=== PATIENT | male | born 1955 | race Caucasian/White ===

== ENCOUNTER → 2019-11-22 | Outpatient (REF) | LOC: LAB 20:41 | PROVIDERS: ATTEND Nurse Practitioner Family | DX: Z01.89 Encounter for other specified special examinations (principal) | CPT/HCPCS: 36415; 84145 ==

== ENCOUNTER 2020-03-18 10:38 | Outpatient (CLI) | payer OTHER ==
[~2020-03-18] VITALS: Ht 185 cm; Wt 93.1 kg
[2020-03-18] MEDS ORDERED: LISI-552 PO (11:38)
== END 2020-03-18 11:41 | disposition home or self-care (01) ==
LOC: PREOP 10:38
PROVIDERS: ATTEND Specialist
DX: Z01.818 Encounter for other preprocedural examination (principal)

== ENCOUNTER 2020-03-19 10:01 | Day surgery (SDC) | payer OTHER ==
[~2020-03-19] VITALS: Ht 185 cm
[~2020-03-19 10:01] MED LIST: LISI-552 PO
[2020-03-19 10:05] VITALS: BP 165/98
[2020-03-19] MEDS ORDERED: PILOCARPINE 4% OPHTH SOLN (ISOPTO CARPINE) 15 ML BTL OP ONE (10:15)
[2020-03-19] MEDS ORDERED: TIMOLOL MALEATE 0.5% 5 ML (TIMOPTIC) BTL OU ONE (10:15)
[2020-03-19] MEDS ORDERED: TETRACAINE 0.5% OPHTH SOLN 4 ML BTL (SINGLE DOSE ONLY) OU ONE (10:15)
--- NOTE | 2020-03-19 10:52 | Ophthalmologist Pre-Op Note ---
Pre-Operative Progress Note H&P Reviewed The H&P was reviewed, patient examined and no changes noted. Date H&P Reviewed: Mar 19, 2020 Time H&P Reviewed: 10:51 Pre-Op Dx PREOPERATIVE DIAGNOSIS: Narrow angle glaucoma, Left Eye POSTOPERATIVE DIAGNOSIS: Narrow angle glaucoma, Left Eye PROCEDURE: YAG Iridotomy left eye SURGEON: Red Lomas ANESTHESIA: Topical anesthesia COMPLICATIONS: None ESTIMATED BLOOD LOSS: Minimal DESCRIPTION OF PROCEDURE: After proper informed consent was obtained, that patients left eye received one drop of tetracaine and one drop of pilocarpine 4%. The patient received 1 drop of timolol 0.5% five minutes after the pilocarpine. The iridotomy lens was placed on the patients eye. The patient was then placed at the argon laser and using a power of [ ] milliwatts, duration of [ ], and spot size of [ ], [ ] burst were used to flatten the iris. After this the patient was moved to the YAG laser and using a power of [ ] millijoules [ ] bursts were used to fashion a patent iridotomy. The patient tolerated the procedure well without complications and the patients pressure was [ ] shortly after the laser RED LOMAS MD Mar 19, 2020 10:52
--- NOTE | 2020-03-19 11:32 | Ophthalmology Operative Report ---
YAG Iridotomy PREOPERATIVE DIAGNOSIS: Narrow angle glaucoma, Left Eye POSTOPERATIVE DIAGNOSIS: Narrow angle glaucoma, Left Eye PROCEDURE: YAG Iridotomy left eye SURGEON: Red Lomas ANESTHESIA: Topical anesthesia COMPLICATIONS: None ESTIMATED BLOOD LOSS: Minimal DESCRIPTION OF PROCEDURE: After proper informed consent was obtained, that patients left eye received one drop of tetracaine and one drop of pilocarpine 4%. The patient received 1 drop of timolol 0.5% five minutes after the pilocarpine. The iridotomy lens was placed on the patients eye. After this the patient was moved to the YAG laser and using a power of [7.0 ] millijoules [ 6] bursts were used to fashion a patent iridotomy. The patient tolerated the procedure well without complications and the patients pressure was [20 ] shortly after the laser RED LOMAS MD Mar 19, 2020 11:32
== END 2020-03-19 11:40 | disposition home or self-care (01) ==
LOC: SDC 10:01
PROVIDERS: ATTEND Specialist
DX: H40.20X0 Unspecified primary angle-closure glaucoma, stage unspecified (principal); I10 Essential (primary) hypertension; F17.290 Nicotine dependence, other tobacco product, uncomplicated; Z79.899 Other long term (current) drug therapy

== ENCOUNTER 2021-12-06 15:43 | Emergency (ER) | payer OTHER ==
[~2021-12-06] VITALS: Ht 170 cm; Wt 102.0 kg
[~2021-12-06 15:43] MED LIST changes: -LISI-552 PO; +LISI20TA26 PO
[2021-12-06 15:50] VITALS: BP 125/72
[2021-12-06] MEDS ORDERED: fentaNYL INJ 100 MCG/2 ML AMP IVP STA (15:58)
--- NOTE | 2021-12-06 16:01 | ED Upper Extremity ---
General Stated Complaint: R WRIST PAIN Source: patient Exam Limitations: no limitations History of Present Illness Date Seen by Provider: December 06, 2021 Time Seen by Provider: 15:59 Initial Comments Patient is a 65-year-old male who presents ED with right wrist pain. Patient fell 30 minutes ago while going down the wheelchair ramp at his house 30 minutes ago. Fell on extended out right arm resulting in right wrist injury with deformity. Denies hit his head or loss of conscious. Not on blood thinners. Denies headache, chest pain, shortness of breath, nausea vomiting, diarrhea Allergies and Home Medications Allergies Coded Allergies: No Known Drug Allergies (Unverified , 03/18/20) Patient Home Medication List Home Medication List Reviewed: Yes Hydrocodone/Acetaminophen (Hydrocodone-Acetamin 5-325 mg) 5 Mg-325 Mg Tablet, 1 TAB PO Q4H PRN for PAIN-MODERATE (5-7) Prescribed by: INGRID ERNST on 12/06/21 1706 Lisinopril (Lisinopril) 20 Mg Tablet, 20 MG PO DAILY, (Reported) Entered as Reported by: KAT MOTTA on 03/18/20 1138 Review of Systems Constitutional: No chills, No diaphoresis EENTM: No blurred vision, No double vision, No eye pain, No dental problems, No mouth pain, No mouth swelling, No throat pain, No throat swelling Respiratory: No cough, No dyspnea on exertion, No short of breath Cardiovascular: No chest pain Gastrointestinal: No abdominal pain, No diarrhea, No nausea, No vomiting Genitourinary: No decreased output, No discharge Musculoskeletal: joint pain, joint swelling, muscle pain Skin: No change in color, No change in hair/nails Physical Exam Vital Signs Vital Signs - First Documented 12/06/21 15:50 Temp 36.6 Pulse 82 Resp 16 B/P (MAP) 125/72 (89) Pulse Ox 98 O2 Delivery Room Air Capillary Refill : Height, Weight, BMI Height: '" Weight: lbs. oz. kg; BMI Method: General Appearance: WD/WN, no apparent distress HEENT: PERRL/EOMI, normal ENT inspection, TMs normal, pharynx normal Neck: non-tender, full range of motion, supple, normal inspection Cardiovascular: regular rate, rhythm, no edema, no gallop, no JVD Respiratory: chest non-tender, lungs clear, normal breath sounds, no respiratory distress, no accessory muscle use Gastrointestinal: normal bowel sounds, non tender, soft Back: normal inspection, no CVA tenderness Shoulder: normal inspection, non-tender, no evidence of injury Wrist: Yes bone tenderness, Yes limited ROM (Right wrist), Yes pain, Yes soft tissue tenderness, Yes swelling Neurologic/Psychiatric: packing machine tender II-XII nml as tested, no motor/sensory deficits, alert, normal mood/affect, oriented x 3 Procedures/Interventions Splinting and Joint Reduction : Location: rigth wrist Pre-Proc Neuro Vasc Exam: normal Post-Proc Neuro Vasc Exam: normal Progress 3 inch Ortho-Glass with sugar-tong splint to the right wrist. Luis Miguel wrap and padding was used. Successful reduction with manipulation and hematoma block. 5 mL of Marcaine was injected into the fracture site with 22-gauge needle. No evidence of compartment syndrome. Pre and post neurovascular intact. Patient tolerated procedure well. Reduction Attempts: 1 Pre-Procedure NV Exam: Yes post joint reduction film: joint reduced Luis Miguel wrap: Yes Arm Sling: Large Progress/Results/Core Measures Results/Orders My Orders Orders - MAYLIN VARELA Wrist, Right, 3 Views Or More (12/06/21 15:58) Iv/Invasive Line Insertion .IV start (12/06/21 15:58) Fentanyl Inj (Sublimaze Injection) (12/06/21 15:58) Bupivacaine 0.5% Injection (Sensorcaine (12/06/21 16:15) Wrist, Right, 2 Views (12/06/21 16:29) Medications Given in ED Current Medications Medications Dose Ordered Sig/Marlene Route Start Time Stop Time Status Last Admin Dose Admin Bupivacaine HCl 30 ml ONCE ONCE INJ 12/06/21 16:15 12/06/21 16:16 DC 12/06/21 16:18 30 ML Vital Signs/I&O 12/06/21 15:50 Temp 36.6 Pulse 82 Resp 16 B/P (MAP) 125/72 (89) Pulse Ox 98 O2 Delivery Room Air Departure Communication (PCP) Patient with a mechanical fall. Landed on his right wrist. Patient has a right radial intra-articular fracture with dorsal angulation. Successful hematoma block with successful reduction close to anatomical position. Patient was placed in a sugar-tong. Was given IV fentanyl with improvement of pain relief. Recommend orthopedic follow-up in the next 7 days. Will discharge with pain medication. Neurovascular intact pre and post splint. No evidence of compartment syndrome. Return precautions were discussed with patient Impression Primary Impression: Wrist fracture Disposition: HOME, SELF-CARE Condition: Stable Departure-Patient Inst. Decision time for Depature: 17:05 Referrals: ZULEYMA MCADAMS (PCP) Primary Care Physician RANDOLPH BONILLA MD Patient Instructions: Fracture, Adult ED Scripts Hydrocodone/Acetaminophen (Hydrocodone-Acetamin 5-325 mg) 5 Mg-325 Mg Tablet 1 TAB PO Q4H PRN for PAIN-MODERATE (5-7), #14 TAB Prov: MAYLIN VARELA 12/06/21 MAYLIN VARELA December 06, 2021 16:01
[2021-12-06] MEDS ORDERED: BUPIVACAINE 0.5% 30 ML (SENSORCAINE) VIAL INJ ONE (16:15)
--- NOTE | 2021-12-06 16:23 | Diagnostic Imaging Report ---
EXAMINATION: Right wrist 3 or more views. REASON FOR EXAM: Right wrist pain. COMPARISON: None available. FINDINGS: Acute fracture is visualized involving the right radial styloid. There is dorsal displacement of the radial styloid relative to the remainder of the radius. The fracture extends into the right radiocarpal joint. There is suggestion of a nondisplaced right ulnar styloid fracture. There is subluxation of the radiocarpal joint dorsally. No fracture is seen in the carpal bones. No focal osseous lesions are seen. Surrounding soft tissue edema is noted in the right wrist. IMPRESSION: 1. Acute fracture involving the right radial styloid with intra-articular extension. Associated dorsal subluxation of the fracture fragment and radiocarpal joint is noted. This may be somewhat exacerbated by positioning. 2. Likely nondisplaced fracture involving the right ulnar styloid. Dictated by: Dictated on workstation # [id number]
[2021-12-06] MEDS ORDERED: ACHD5005 PO (17:06)
--- NOTE | 2021-12-06 17:16 | Diagnostic Imaging Report ---
CLINICAL INDICATION: Post reduction of fracture. EXAM: X-ray of the right wrist, two views. COMPARISON: X-ray of the right wrist dated 12/06/2021. FINDINGS AND IMPRESSION: 1: There is interval reduction of the previously seen intra-articular fracture involving the radial distal aspect of the distal radial styloid region. The fracture is now near-anatomic alignment which has improved compared to the prior study. 2: The remainder of this exam shows no significant interval change compared to the prior study of comparison. Dictated by: Dictated on workstation # [id number]
== END 2021-12-06 17:22 | disposition home or self-care (01) ==
LOC: EDUNIT# 15:43 → ER 15:46
DX: S52.571A Other intraarticular fracture of lower end of right radius, initial encounter for closed fracture (principal); S52.511A Displaced fracture of right radial styloid process, initial encounter for closed fracture; W18.30XA Fall on same level, unspecified, initial encounter; Y92.415 Exit ramp or entrance ramp of street or highway as the place of occurrence of the external cause
CPT/HCPCS: 29125; 64450; 73100; 73110